=== PATIENT | female | born 1965 | race Caucasian/White ===

== ENCOUNTER → 2019-03-17 | Day surgery (SDC) | payer OTHER ==
[2019-03-14 10:07] LABS: Protime INR 0.87
[2019-03-14 10:15] LABS: Absolute Lymphocytes (CBC) 2.3 K/uL (0.7-4.9); Basophils % 0.7 % (0-1.3); Hematocrit 38.8 % (36.0-45.0); Lymphocytes % 39.2 % (15.3-44.8); MPV 8.9 fL (7.6-11.3); RBC Red Blood Cell Count 4.14 M/uL (3.86-4.86)
--- NOTE | 2019-03-14 10:52 | RAD REPORT ---
EXAM DESCRIPTION: RAD - Chest Pa And Lat (2 Views) - 03/14/2019 9:51 am CLINICAL HISTORY: Preop chest, pending cardiac catheterization COMPARISON: April 2016 TECHNIQUE: PA and lateral views of the chest were obtained. FINDINGS: The lungs are clear. Lung markings are similar to comparison. Heart size is normal and ce ntral vasculature is within normal limits. No pleural effusion or pneumothorax seen. No acute bony finding noted. No aortic abnormality. No significant interval change is noted. IMPRESSION: No acute cardiopulmonary process.
[~2019-03-17] MED LIST: ATROPINE SULF 1 MG/10 ML SYR IV ONE; FENTANYL CITR 100 MCG/2 ML ONE; HEPA 1000U/500MLS 2,000 UNIT/1,000 ML BAG IV ONE; HEPARIN 5000 UNIT/ML 1 ML VIAL ONE; LIDOCAINE 1% MPF 30 ML VIAL ONE; MIDAZOLAM HCL 2 MG/2 ML INJ ONE; NA CHLORIDE 0.9% 0 ML ONE; NA CHLORIDE 0.9% 500 ML ONE; NICARDIPINE HCL 25 MG/10 ML IV ONE; NITROGLYCERIN 100 MCG/ML SYR (for cath lab use only) IV ONE; NITROGLYCERIN/D5W 25 MG/250 ML BTL IV ONE
--- OUTSIDE RECORDS SUMMARY | 2019-03-17 07:01 | XMS REPORT | Summary of Care ---
:1965 Author Organization [facility] Address [address] [place] [address] Care Team Providers Name Role Phone Armando Kelly Primary Care Provider Reason for Referral (Routine) Status Reason Specialty Diagnoses / Referred By Contact Referred To Procedures Contact New Request Diagnoses Chest pain, unspecified type Evelin Singer MD Feaver, Brian J Procedures Discharge Follow-up: PCP ARMANDO KELLY; 3-[address] [place] [address] [address]753 [id number] [place] [address] Phone: Reason for Visit Reason Comments Chest Pain Auth/Cert Status Reason Specialty Diagnoses / Referred By Referred To Procedures Contact Contact [facility] [address] [place] [address] [place] [address] Encounter Details Date Type Department Care Team Description 03/14/2019 - Emergency [facility] Surgery Lei Whalen III, PA [address] [place] [address] [address] [place] [id number] Atypical chest pain 03/15/2019 Unit Evelin Singer MD [address] [place] [address]. [address] [place], [place] [address] [place] [address] [address] [place] [address] Allergies Active Allergy Reactions Severity Noted Date Comments Ibuprofen Other - See comments 10/10/2017 documented as of this encounter (statuses as of 03/15/2019) Medications Medication Sig Dispensed Refills Start Date End Date Status DULoxetine 30 mg 0 10/08/2017 Active capsule traZODONE 100 mg TK 1/2 TO 1 T 0 09/04/2017 Active tablet PO HS PRN butalbital-acetamin TK 1 T PO Q 6 0 10/05/2017 Active ophen 50-300 mg Tab H PRF ABAD levothyroxine 75 TK 1 T PO QD 0 10/05/2017 Active mcg tablet proMETHazine 25 mg TK 1 T PO QID 0 10/05/2017 Active tablet acetaminophen-codei Take 1 tablet 20 tablet 0 12/09/2017 Active ne (TYLENOL-CODEINE by mouth #3) 300-30 mg every 6 (six) tablet hours as needed for Pain (scale 4-6). pantoprazole 40 mg TK 1 T PO QD 30 tablet 1 03/15/2019 Active EC tabletIndications: Chest pain, unspecified type sucralfate 1 gram Take 1 tablet 120 tablet 0 03/15/2019 04/14/2019 Active tabletIndications: by mouth Chest pain, before meals unspecified type and at bedtime for 30 days. pantoprazole 40 mg TK 1 T PO QD 1 10/05/2017 03/15/2019 Discontinued EC tablet clindamycin 300 mg Take 1 28 capsule 0 12/09/2017 03/15/2019 Discontinued capsule capsule by mouth 4 (four) times daily. documented as of this encounter (statuses as of 03/15/2019) Active Problems Problem Noted Date Atypical chest pain 03/14/2019 Family history of premature CAD 03/14/2019 Cigarette nicotine dependence without complication 03/14/2019 documented as of this encounter (statuses as of 03/15/2019) Immunizations Name Administration Dates Next Due Td 12/09/2017 documented as of this encounter Social History Tobacco Use Types Packs/Day Years Used Date Current Every Day Smoker Cigarettes 1 20 Smokeless Tobacco: Never Used Tobacco Cessation: Ready to Quit: Yes Sex Assigned at Date Recorded Not on file Job Start Date Occupation Industry Not on file Not on file Not on file Travel History Travel Start Travel End No recent travel history available. documented as of this encounter Last Filed Vital Signs Vital Sign Reading Time Taken Comments Blood Pressure 103/65 03/15/2019 11:40 AM CDT Pulse 58 03/15/2019 11:40 AM CDT Temperature 36.6 C (97.9 F) 03/15/2019 11:40 AM CDT Respiratory Rate 20 03/15/2019 11:40 AM CDT Oxygen Saturation 100% 03/15/2019 11:40 AM CDT Inhaled Oxygen Concentration - - Weight 76.2 kg (168 lb) 03/14/2019 2:35 PM CDT Height 167.6 cm (5' 6") 03/14/2019 2:35 PM CDT Body Mass Index 27.12 03/14/2019 2:35 PM CDT documented in this encounter Discharge Summaries Evelin Singer MD - 03/15/2019 12:36 PM CDT Internal Medicine Discharge Summary ADMIT DATE: 03/14/2019 DISCHARGE DATE: 03/15/2019 ATTENDING MD: Evelin Singer MD PCP: Armando Kelly FINAL DIAGNOSIS: (the reason, after study, for admitting the patient to the hospital) Atypical chest pain HOSPITAL COURSE: 53 y/o female presented with atpyical chest pain, placed in observation, ruled out with negative troponins, cleared for discharge by cardiology and has cath outpatient with Dr. Alvarado coming up this Sunday in 2 days. Her pain seems more epigastric and possibly GI related. She was given maalox, carafate and ppi and seems to have improved. Will be discharged on ppi and carafate and recommended outpatient GI follow up with outpatient EGD. Also her TSH < 0.02, she has follow up with endocrinology so I recommended to f/u with them as soon as possible to discuss about decreasing her thyroid medications as its unclear to me why shes on two meds ([employer] thyroid and synthroid). Her normal SBP is in the 90s. CONSULTING SERVICES: Dr. Fountain- cardiology PROCEDURES: none SIGNIFICANT LAB/X-RAYS: LABS - reviewed pertinent labs as below: CBC BMP PT/INR WBC x10^3 (/CMM) Date Value 02/12/2006 5.3 WBC (10*3/L) Date Value 03/14/2019 6.73 NA Date Value 03/14/2019 142 mmol/L 02/12/2006 143 MMOL/L No results found for: PT RBC x10^6 (/CMM) Date Value 02/12/2006 4.43 RBC (10*6/L) Date Value 03/14/2019 4.09 K Date Value 03/14/2019 3.7 mmol/L 02/12/2006 3.6 MMOL/L INR (no units) Date Value 03/14/2019 1.0 PLT x10^3 (/CMM) Date Value 02/12/2006 267 PLT (10*3/L) Date Value 03/14/2019 219 CALCIUM Date Value 03/14/2019 9.4 mg/dL 02/12/2006 8.9 MG/DL HGB Date Value 03/14/2019 13.1 g/dL 02/12/2006 12.1 G/DL CL Date Value 03/14/2019 108 mmol/L 02/12/2006 104 MMOL/L aPTT HCT (%) Date Value 03/14/2019 37.8 02/12/2006 38.4 BUN Date Value 03/14/2019 9 mg/dL 02/12/2006 10 MG/DL APTT Patient (Seconds) Date Value 03/14/2019 26 CREATININE Date Value 03/14/2019 0.56 mg/dL 02/12/2006 0.84 MG/DL IMAGING - reviewed No results found for this visit on 03/14/19. Subjective No chest pain, sob, dizzinesss, abd pain, n/v Wants to be discharged today Physical Exam NAD Anicteric sclera, oral mucosa clear Good air entry b/l RRR, nl s1s2 Abd soft NT No significant LE, no calf tenderness AAO, no gross deficits Skin warm and dry Bilateral knees not red or swollen FUNCTIONAL STATUS: fully ambulatory DISCHARGE CONDITION: fair COGNITIVE STATUS: cognitively intact DIET: regular ACTIVITY: as tolerated DISCHARGE MEDICATIONS: Current Discharge Medication List START taking these medications Details sucralfate (CARAFATE) 1 g Take 1 g by mouth before meals and at bedtime. Qty: 120 tablet, Refills: 0 Start date: 03/15/2019, End date: 04/14/2019 Associated Diagnoses: Chest pain, unspecified type CONTINUE these medications which have CHANGED Details pantoprazole 40 mg EC tablet TK 1 T PO QD Qty: 30 tablet, Refills: 1 Start date: 03/15/2019 Associated Diagnoses: Chest pain, unspecified type CONTINUE these medications which have NOT CHANGED Details acetaminophen-codeine (TYLENOL #3) 1 tablet Take 1 tablet by mouth every 6 (six ) hours as needed forPain (scale 4-6). Qty: 20 tablet, Refills: 0 butalbital-acetaminophen 50-300 mg Tab TK 1 T PO Q 6 H PRF ABAD Refills: 0 DULoxetine 30 mg capsule levothyroxine 75 mcg tablet TK 1 T PO QD Refills: 0 proMETHazine 25 mg tablet TK 1 T PO QID Refills: 0 traZODONE 100 mg tablet TK 1/2 TO 1 T PO HS PRN Refills: 0 STOP taking these medications clindamycin (CLEOCIN HCL) 300 mg Comments: Reason for Stopping: PATIENT EDUCATION PROVIDED: medications DISCHARGE: home self care documented in this encounter Discharge Instructions InstructionsKelsi Ch RN - 03/15/2019 Patient Discharge Instructions Discharge date: 03/15/2019 Discharge Orders Discharge Follow-up: PCP ARMANDO KELLY; 3-5 Days To PCP: ARMANDO KELLY [[id number]] Patient's Preferred Location: Unknown Discharge Disposition: HOME, ([facility]) When (Patients with risk for unplanned readmission score over 16 or those noted as Hospital Dependent should follow up within 7 days with PCP or primary DX specialist): 3-5 Days Risk of Unplanned Readmission:( Score greater than 16 indicates high risk) 8 Cardiac (2 gm Sodium, Low Fat, Low Cholesterol) Diet; Texture: Regular. Texture Regular. Diabetic: No Discharge Condition - Discharge Condition: FAIR Discharge Activity Discharge Activity: As Tolerated VTE Propylaxis- Was ordered during hospitalization Discharge Instructions Order Comments: Follow up with primary care physician, endocrinology, gastroenterology and cardiology as discussed. Take Home Medications These are medications ordered for you by your healthcare provider. Do not take any other medications or supplements unless advised by your healthcare provider. Current Discharge Medication List START taking these medications Details sucralfate 1 gram tablet Take 1 tablet by mouth before meals and at bedtime for 30 days. Qty: 120 tablet, Refills: 0 Associated Diagnoses: Chest pain, unspecified type CONTINUE these medications which have CHANGED Details pantoprazole 40 mg EC tablet TK 1 T PO QD Qty: 30 tablet, Refills: 1 Associated Diagnoses: Chest pain, unspecified type CONTINUE these medications which have NOT CHANGED Details acetaminophen-codeine (TYLENOL-CODEINE #3) 300-30 mg tablet Take 1 tablet by mouth every 6 (six) hours as needed for Pain (scale 4-6). Qty: 20 tablet, Refills: 0 butalbital-acetaminophen 50-300 mg Tab TK 1 T PO Q 6 H PRF ABAD Refills: 0 DULoxetine 30 mg capsule levothyroxine 75 mcg tablet TK 1 T PO QD Refills: 0 proMETHazine 25 mg tablet TK 1 T PO QID Refills: 0 traZODONE 100 mg tablet TK / TO 1 T PO HS PRN Refills: 0 STOP taking these medications clindamycin 300 mg capsule Comments: Reason for Stopping: For questions regarding follow-up instructions call the Healthcare Hotline at or For worsening symptoms/changing condition/problems or questions: Non-emergency/urgent: Call the Healthcare Hotline at or Emergency: Go to the closest emergency room or call [phone] If you receive the patient satisfaction survey by mail please complete and return and let us know how we are doing. TOBACCO AVOIDANCE Exposure to tobacco either from smoking or from second hand (environmental) smoke or smokeless tobacco (snuff) is damaging to your health. This information is to encourage everyone to avoid tobacco exposure. It is recommended that you: ? If you smoke or use smokeless tobacco, we encourage you to quit. ? If you have already quit smoking, continue your good work! ? If you do not smoke or use smokeless tobacco, do not start. ? Avoid secondhand smoke. Additional Resources You may want to contact these organizations for further information on smoking and how to quit. [place] [employer], http://www.lungusa.org/stop-smoking/ [place] [employer], http://www.cancer.org/Healthy/StayAwayfromTobacco/index [place] [employer], http://www.heart.org/HEARTORG/GettingHealthy/ QuitSmoking/Quit-Smoking_[facility]_001085_SubHomePage.jsp AttachmentsThe following attachments cannot be sent through Care Everywhere.Chest Pain, Uncertain Cause (Togolese)Pantoprazole tablets (Togolese) Sucralfate tablets (Togolese)documented in this encounter Plan of Treatment Name Type Priority Associated Diagnoses Order Schedule EKG-12 LEAD ROUTINE HEART STATION Routine EVERY MORNING for 2 Days starting 03/15/2019 until 03/16/2019 Health Maintenance Due Date Last Done Comments PNEUMOCOCCAL 0-64 YEARS COMBINED SERIES (1 1971 of 1 - PPSV23) MAMMOGRAM 01/15/2007 01/15/2006 PAP SMEAR 01/15/2009 01/15/2006, 01/26/2005 COLONOSCOPY 2015 Zoster Recombinant Vaccine (SHINGRIX) (1 2015 of 2) DTaP,Tdap,and Td Vaccines (1 - Tdap) 12/10/2017 12/09/2017 INFLUENZA VACCINE 04/13/2019 documented as of this encounter Procedures Procedure Name Priority Date/Time Associated Diagnosis Comments POCT GLUCOSE Routine 03/15/2019 7:23 Results for this (AUTOMATED) AM CDT procedure are in the results section. LACTIC ACID WHOLE STAT 03/15/2019 5:32 Results for this BLOOD AM CDT procedure are in the results section. TROPONIN I Routine 03/15/2019 5:31 Results for this AM CDT procedure are in the results section. FREE T3 Add-on 03/14/2019 11:24 Results for this PM CDT procedure are in the results section. TROPONIN I Routine 03/14/2019 11:24 Results for this PM CDT procedure are in the results section. POCT TEST Routine 03/14/2019 5:22 Chest pain, Results for this PM CDT unspecified type procedure are in the results section. THYROID STIMULATING Add-on 03/14/2019 5:15 Results for this HORMONE PM CDT procedure are in the results section. TROPONIN I STAT 03/14/2019 5:15 Results for this PM CDT procedure are in the results section. EKG-12 LEAD STAT 03/14/2019 5:11 PM CDT URINALYSIS STAT 03/14/2019 4:51 Chest pain, Results for this PM CDT unspecified type procedure are in the results section. CBC WITH DIFFERENTIAL STAT 03/14/2019 2:53 Chest pain, Results for this PM CDT unspecified type procedure are in the results section. N-TERMINAL PRO-BNP STAT 03/14/2019 2:53 Chest pain, Results for this PM CDT unspecified type procedure are in the results section. ACTIVATED PARTIAL STAT 03/14/2019 2:53 Chest pain, Results for this THRMPLAS JOSE PM CDT unspecified type procedure are in the results section. D-DIMER STAT 03/14/2019 2:53 Chest pain, Results for this PM CDT unspecified type procedure are in the results section. PROTHROMBIN TIME / STAT 03/14/2019 2:53 Chest pain, Results for this INR PM CDT unspecified type procedure are in the results section. CBC WITH DIFF Routine 03/14/2019 2:53 Chest pain, Results for this PM CDT unspecified type procedure are in the results section. COMP. METABOLIC PANEL STAT 03/14/2019 2:53 Chest pain, Results for this (08653) PM CDT unspecified type procedure are in the results section. TROPONIN I STAT 03/14/2019 2:53 Chest pain, Results for this PM CDT unspecified type procedure are in the results section. LIPASE STAT 03/14/2019 2:53 Chest pain, Results for this PM CDT unspecified type procedure are in the results section. EKG-12 LEAD STAT 03/14/2019 2:40 PM CDT NOTICE OF PRIVACY Routine 03/14/2019 2:27 PRACTICES PM CDT documented in this encounter Results POCT GLUCOSE (AUTOMATED) (03/15/2019 7:23 AM CDT) POCT GLU 91 70 - 110 mg/dL [facility] Specimen Blood Performing Organization Address [facility] Phone Number [facility] CLIA: [id number], [address] [place] [address] Lactic Acid Whole Blood (03/15/2019 5:32 AM CDT) LACTIC ACID 1.27 0.30 - 2.60 mmol/L [facility] Specimen Blood - HAND, RIGHT Performing Organization Address [facility] Phone Number [facility] CLIA: [id number], [address] [place] [address] Troponin I (03/15/2019 5:31 AM CDT) TROPONIN I 0.004 <=0.034 ng/mL [facility] Specimen Blood - HAND, RIGHT Narrative Performed At Equal or Less than 0.034 ng/ml---Normal [facility] Note: Cardiac troponin begins to rise 3-4 hours after the onset of ischemia. Repeat in 4-6 hours if the sample was drawn within 3-4 hours of the onset of the symptom and found normal. Between 0.035 and 0.120 ng/mL--- Borderline. Questionable myocardial injury or necrosis Note: Serial measurement may be necessary to confirm or exclude the diagnosis of myocardial injury or necrosis; Clinical correlation (symptoms, EKGs, imaging studies, and others) required; Repeat in 4-6 hours if clinically indicated. Equal or Higher than 0.121 ng/mL---Abnormal. Myocardial Injury or Necrosis Likely Biotin has been reported to cause a negative bias, interpret results relative to patient's use of biotin. Performing Organization Address City/[facility] Phone Number [facility] CLIA: [id number], [address] [place] [address] FREE T3 (03/14/2019 11:24 PM CDT) FREE T3 2.94 2.77 - 5.27 pg/mL [facility] Specimen Blood - HAND, LEFT Performing Organization Address [facility] Phone Number [facility] CLIA: [id number], [address] [place] [address] Troponin I (03/14/2019 11:24 PM CDT) TROPONIN I 0.004 <=0.034 ng/mL [facility] Specimen Blood - HAND, LEFT Narrative Performed At Equal or Less than 0.034 ng/ml---Normal [facility] Note: Cardiac troponin begins to rise 3-4 hours after the onset of ischemia. Repeat in 4-6 hours if the sample was drawn within 3-4 hours of the onset of the symptom and found normal. Between 0.035 and 0.120 ng/mL--- Borderline. Questionable myocardial injury or necrosis Note: Serial measurement may be necessary to confirm or exclude the diagnosis of myocardial injury or necrosis; Clinical correlation (symptoms, EKGs, imaging studies, and others) required; Repeat in 4-6 hours if clinically indicated. Equal or Higher than 0.121 ng/mL---Abnormal. Myocardial Injury or Necrosis Likely Biotin has been reported to cause a negative bias, interpret results relative to patient's use of biotin. Performing Organization Address [facility] Phone Number [facility] CLIA: [id number], [address] [place] [address] POCT TEST (03/14/2019 5:22 PM CDT) POCT PREG Negative On board controls acceptable Yes with C Line POCT PREG LOT # [id number] POCT PREG TEST DATE 08/12/2020 Specimen Urine THYROID STIMULATING HORMONE (03/14/2019 5:15 PM CDT) Pathologist [facility] TSH <0.02 (L)Comment: 0.45 - 4.70 [facility] Biotin has been mIU/L [facility] reported to cause a negative bias, interpret results relative to patient's use of biotin. Specimen Blood - HAND, LEFT Performing Organization Address [facility] Phone Number [facility] CLIA: [id number], [address] [place] [address] TROPONIN I (03/14/2019 5:15 PM CDT) Pathologist [facility] TROPONIN I 0.003 <=0.034 ng/mL [facility] Specimen Blood - HAND, LEFT Narrative Performed At Equal or Less than 0.034 ng/ml---Normal [facility] Note: Cardiac troponin begins to rise 3-4 hours after the onset of ischemia. Repeat in 4-6 hours if the sample was drawn within 3-4 hours of the onset of the symptom and found normal. Between 0.035 and 0.120 ng/mL--- Borderline. Questionable myocardial injury or necrosis Note: Serial measurement may be necessary to confirm or exclude the diagnosis of myocardial injury or necrosis; Clinical correlation (symptoms, EKGs, imaging studies, and others) required; Repeat in 4-6 hours if clinically indicated. Equal or Higher than 0.121 ng/mL---Abnormal. Myocardial Injury or Necrosis Likely Biotin has been reported to cause a negative bias, interpret results relative to patient's use of biotin. Performing Organization Address [facility]/Zipcode Phone Number [facility] CLIA: [id number], [address] [place] [address] URINALYSIS (03/14/2019 4:51 PM CDT) APPEARANCE Clear Clear [facility] COLOR Yellow Yellow [facility] PH 7.0 4.8 - 8.0 [facility] SP GRAVITY 1.010 1.003 - 1.030 [facility] GLU U QUAL Negative Negative [facility] BLOOD Negative Negative [facility] KETONES Negative Negative [facility] PROTEIN Negative Negative [facility] UROBILIN 0.2 mg/dL 0-1.0 mg/dL [facility] BILIRUBIN Negative Negative [facility] NITRITE Negative Negative [facility] LEUK SHANIA Negative Negative [facility] RBC/HPF 4 (H) 0 - 3 HPF [facility] WBC/HPF 2 0 - 5 HPF [facility] BACTERIA Few (A) Negative [facility] SQ EPITH 5 HPF [facility] Specimen Urine - URINE, CLEAN CATCH Performing Organization Address [facility] Phone Number [facility] CLIA: [id number], [address] [place] [address] D-DIMER (03/14/2019 2:53 PM CDT) D-DIMER <0.27 <0.41 g/mL (FEU) [facility] Specimen Blood - HAND, RIGHT Narrative Performed At This test may be used in conjunction with a [facility] clinical pretest probability (PTP) assessment model to exclude pulmonary embolism (PE) and as an aid in the diagnosis of deep venous thrombosis (DVT) in outpatients suspected of PE or DVT. A D-Dimer value less than 0.50 g/ml (FEU) has a negative predicative value of 98 to 100% (95% CI) for the exclusion of pulmonary embolism (PE) and 95 to 100% (95% CI) as an aid in the diagnosis of deep vein thrombosis (DVT) when there is low or moderate pretest probability of PE or DVT. D-Dimer values are expressed in initial fibrinogen equivalent units (FEU). Performing Organization Address [facility]/State/Zipcode Phone Number [facility] CLIA: [id number], [address] [place] [address] CBC WITH DIFFERENTIAL (03/14/2019 2:53 PM CDT) WBC 6.73 4.30 - 11.10 [facility] 10*3/L [facility] RBC 4.09 3.93 - 5.25 [facility] 10*6/L [facility] HGB 13.1 11.6 - 15.0 g/dL [facility] HCT 37.8 35.7 - 45.2 % [facility] MCV 92.4 80.6 - 95.5 fL [facility] MCH 32.0 25.9 - 32.8 pg [facility] MCHC 34.7 31.6 - 35.1 g/dL [facility] RDW-SD 41.0 39.0 - 49.9 fL [facility] RDW-CV 12.1 12.0 - 15.5 % [facility] PLT 219 166 - 358 [facility] 10*3/L [facility] MPV 10.3 9.5 - 12.9 fL [facility] NRBC/100 WBC 0.0 0.0 - 10.0 /100 [facility] WBCs [facility] NRBC x10^3 <0.01 10*3/L [facility] GRAN MAT (NEUT) % 48.3 % [facility] IMM GRAN % 0.30 % [facility] LYMPH % 41.9 % [facility] MONO % 7.3 % [facility] EOS % 1.5 % [facility] BASO % 0.7 % [facility] GRAN MAT x10^3(ANC) 3.25 1.88 - 7.09 [facility] 10*3/uL [facility] IMM GRAN x10^3 <0.03 0.00 - 0.06 [facility] 10*3/uL [facility] LYMPH x10^3 2.82 1.32 - 3.29 [facility] 10*3/uL [facility] MONO x10^3 0.49 0.33 - 0.92 [facility] 10*3/uL [facility] EOS x10^3 0.10 0.03 - 0.39 [facility] 10*3/uL [facility] BASO x10^3 0.05 0.01 - 0.07 [facility] 10*3/uL [facility] Specimen Blood - HAND, RIGHT Performing Organization Address City/[facility] Phone Number [facility] CLIA: [id number], [address] [place] [address] aPTT (03/14/2019 2:53 PM CDT) Pathologist [facility] APTT Patient 26 23 - 38 Seconds [facility] Specimen Blood - HAND, RIGHT Narrative Performed At [facility] patient population mean normal value [facility] for aPTT is 30 seconds. Performing Organization Address [facility] Phone Number [facility] CLIA: [id number], [address] [place] [address] PROTHROMBIN TIME / INR (03/14/2019 2:53 PM CDT) [facility] PROTIME PATIENT 12.6 12.0 - 14.7 [facility] LABORATORY INR 1.0Comment: Normal [facility] [facility].1; Warfarin [facility] Therapeutic range LABORATORY 2.0 to 3.0 or 2.5 to 3.5, depending upon the indications. Specimen Blood - HAND, RIGHT Performing Organization Address [facility] Phone Number [facility] CLIA: [id number], [address] [place], [place] [address] [address] N-TERMINAL PRO-BNP (03/14/2019 2:53 PM CDT) [facility] NT-proBNP 125 <=125 pg/mL [facility] Specimen Blood - HAND, RIGHT Narrative Performed At Biotin has been reported to cause a negative [facility] bias, interpret results relative to patient's use of biotin. Performing Organization Address [facility] Phone Number [facility] CLIA: [id number], [address] [place], [place] [id number] [address] TROPONIN I (03/14/2019 2:53 PM CDT) [facility] TROPONIN I 0.003 <=0.034 ng/mL [facility] Specimen Blood - HAND, RIGHT Narrative Performed At Equal or Less than 0.034 ng/ml---Normal [facility] Note: Cardiac troponin begins to rise 3-4 hours after the onset of ischemia. Repeat in 4-6 hours if the sample was drawn within 3-4 hours of the onset of the symptom and found normal. Between 0.035 and 0.120 ng/mL--- Borderline. Questionable myocardial injury or necrosis Note: Serial measurement may be necessary to confirm or exclude the diagnosis of myocardial injury or necrosis; Clinical correlation (symptoms, EKGs, imaging studies, and others) required; Repeat in 4-6 hours if clinically indicated. Equal or Higher than 0.121 ng/mL---Abnormal. Myocardial Injury or Necrosis Likely Biotin has been reported to cause a negative bias, interpret results relative to patient's use of biotin. Performing Organization Address [facility] Phone Number [facility] CLIA: [id number], [address] [place] [address] LIPASE (03/14/2019 2:53 PM CDT) LIPASE 43 0 - 220 U/L [facility] Specimen Blood - HAND, RIGHT Performing Organization Address [facility] Phone Number [facility] CLIA: [id number], [address] [place] [address] COMP. METABOLIC PANEL ([id number]) (03/14/2019 2:53 PM CDT) NA 142 135 - 145 mmol/L [facility] K 3.7 3.5 - 5.0 mmol/L [facility] CL 108 98 - 108 mmol/L [facility] CO2 TOTAL 23 23 - 31 mmol/L [facility] AGAP 11 2 - 16 [facility] BUN 9 7 - 23 mg/dL [facility] GLUCOSE 101 70 - 110 mg/dL [facility] CREATININE 0.56 0.50 - 1.04 [facility] mg/dL [facility] TOTAL BILI 0.4 0.1 - 1.1 mg/dL [facility] CALCIUM 9.4 8.6 - 10.6 mg/dL [facility] T PROTEIN 7.7 6.3 - 8.2 g/dL [facility] ALBUMIN 4.5 3.5 - 5.0 g/dL [facility] ALK PHOS 92 34 - 122 U/L [facility] ALT(SGPT) 16 9 - 51 U/L [facility] AST(SGOT) 24 13 - 40 U/L [facility] eGFR Calculation 113.2 mL/min/1.73m2 [facility] (Non-) [facility] eGFR Calculation 137.2 mL/min/1.73m2 [facility] () [facility] Specimen Blood - HAND, RIGHT Narrative Performed At Association of Glomerular Filtration Rate (GFR) [facility] and Staging of Kidney Disease* + + +- + | GFR (mL/min/1.73 m2)| With Kidney Damage|Without Kidney Damage + + +- + |>90| Stage one| Normal + + +- + |60-89|S tage two| Decreased GFR + + +- + |30-59|S tage three| Stage three + + +- + |15-29|S tage four | Stage four + + +- + |<15 (or dialysis)|Stage five | Stage five + + +- + *Each stage assumes the associated GFR level has been in effect for at least three months.Stages 1 to 5, with or without kidney disease, indicate chronic kidney disease. Notes: Determination of stages one and two (with eGFR >59mL/min/1.73 m2) requires estimation of kidney damage for at least three months as defined by structural or functional abnormalities of the kidney, manifested by either: Pathological abnormalities or Markers of kidney damage (including abnormalities in the composition of the blood or urine or abnormalities in imaging tests). Performing Organization Address City/State/Zipcode Phone Number [facility] CLIA: [id number], [address] [place] [address] [facility] [address] documented in this encounter Visit Diagnoses Diagnosis Chest pain, unspecified type - Primary documented in this encounter Administered Medications Medication Order MAR Action Action Date Dose Rate Site acetaminophen (TYLENOL) tablet Given 03/15/2019 4:44 AM CDT 650 mg 650 mg 650 mg, Oral, Q6HPRN, Starting Sun03/14/19 at 1714, Until Discontinued, Routine, Pain (scale 1-3) Given 03/14/2019 5:25 PM CDT 650 mg alum-mag hydroxide-simeth (MAALOX PLUS / MAG-AL PLUS) 200-200-20 mg/5 mL suspension 30 mL 30 mL, Oral, TID, First dose on Sun03/14/19 at 2000, Until Discontinued, Routine DULoxetine (CYMBALTA) capsule 30 mg Given 03/15/2019 8:07 AM CDT 30 mg 30 mg, Oral, DAILY, First dose on Sun03/15/19 at 0900, Until Discontinued, Routine HYDROcodone-acetaminophen (NORCO 5) 5-325 Given 03/15/2019 8:06 AM CDT 1 tablet mg tablet 1 tablet 1 tablet, Oral, Q6HPRN, Starting Sun03/14/19 at 1715, Until 03/16/19 at 1714, Routine, Pain (scale 4-6) levothyroxine (SYNTHROID) tablet 50 mcg Given 03/15/2019 5:09 AM CDT 50 mcg 50 mcg, Oral, QAM-0600, First dose on Sun03/15/19 at 0600, Until Discontinued, Routine methocarbamol (ROBAXIN) tablet 750 mg Given 03/15/2019 8:06 AM CDT 750 mg 750 mg, Oral, BID, First dose on Sun03/14/19 at 2000, Until Discontinued, Routine Given 03/14/2019 9:52 PM CDT 750 mg nitroglycerin (NITROSTAT) sublingual tablet Given 03/14/2019 5:18 PM CDT 0.4 mg 0.4 mg 0.4 mg, Sublingual, Q5MIN PRN, Starting Sun03/14/19 at 1710, Until Discontinued, Routine, Chest pain Given 03/14/2019 5:11 PM CDT 0.4 mg pantoprazole (PROTONIX) 40 mg in NaCl 0.9% Given 03/15/2019 8:08 AM CDT 40 mg (NS) 100 mL MINI-BAG 40 mg, IV Piggyback, Q12H, First dose on Sun03/14/19 at 1930, Until Discontinued, 100 mL Given 03/14/2019 9:52 PM CDT 40 mg proMETHazine (PHENERGAN) tablet 25 mg Given 03/14/2019 9:52 PM CDT 25 mg 25 mg, Oral, QHS, First dose on Sun03/14/19 at 2100, Until Discontinued, Routine sucralfate (CARAFATE) 100 mg/mL suspension Given 03/15/2019 11:34 AM CDT 1, 000 mg 1,000 mg 1,000 mg (1 g), Oral, AC+HS, First dose on Sun03/14/19 at 2100, Until Discontinued, Routine Given 03/15/2019 8:07 AM CDT 1,000 mg traZODone (DESYREL) tablet 100 mg Given 03/14/2019 9:52 PM CDT 100 mg 100 mg, Oral, QHS, First dose on Sun03/14/19 at 2200, Until Discontinued, Routine Medication Order MAR Action Action Date Dose Rate Site aspirin tablet 325 mg Given 03/14/2019 4:46 PM CDT 325 mg 325 mg, Oral, ONCE, 1 dose, Sun03/14/19 at 1800, STAT xiersfpaep-[id number]-czva (ESGIC) Given 03/15/2019 10:11 AM CDT 2 tablets 50-325-40 mg tablet 2 tablet 2 tablet, Oral, ONCE, 1 dose, 03/15/19 at 1100, Routine lactated ringers IV infusion 500 New Bag 03/15/2019 12:32 AM CDT 500 mL 999 mL/hr mL at 999 mL/hr, 500 mL, Intravenous, ONCE, 1 dose, 03/15/19 at 0130, Routine maalox:diphenhydrAMINE:lidocaine2 %viscous Given 03/14/2019 3:05 PM CDT 15 mL 1:1:1: suspension (COMPOUNDED) 15 mL, Oral, ONCE, 1 dose, Sun03/14/19 at 1545, Routine morpHINE injection 4 mg Given 03/14/2019 4:46 PM CDT 4 mg 4 mg, Slow IV Push, ONCE, 1 dose, Sun03/14/19 at 1730, STAT NaCl 0.9% (NS) bolus infusion 500 New Bag 03/15/2019 5:07 AM CDT 500 mL 999 mL/hr mL at 999 mL/hr, 500 mL, IV Piggyback, ONCE, 1 dose, 03/15/19 at 0600, STAT nitroglycerin (NITROL) 2 % ointment 0.5 Given 03/14/2019 3:19 PM CDT 0.5 Inches Inch 0.5 Inch, Transdermal (Apply To Skin), ONCE, 1 dose, Sun03/14/19 at 1545, ISAMAR ondansetron (ZOFRAN (PF)) injection 4 mg Given 03/14/2019 4:46 PM CDT 4 mg 4 mg, Slow IV Push, ONCE, 1 dose, Sun03/14/19 at 1545, Routine documented in this encounter documented as of this encounter
--- OUTSIDE RECORDS SUMMARY | 2019-03-17 07:01 | XMS REPORT ---
:1965 [facility] Address [address] [place] [id number] Care Team Providers Name Role Phone Unavailable Unavailable Unavailable Problems This patient has no known problems. Allergies, Adverse Reactions, Alerts This patient has no known allergies or adverse reactions. Medications This patient has no known medications.
--- NOTE | 2019-03-17 20:10 | OP ---
Surgeon: Cristopher Alvarado MD Identification: A 53-year-old woman. Procedures: Left heart catheterization, coronary left ventricular angiography via radial approach fo r what appeared to be unstable angina. Procedure Findings: The patient has normal coronary arteries. Normal left ventricular ejection frac tion and wall motion. Normal pressures. A completely normal cardiac cath. She has a left dominant, a normal variant. Procedure In Detail: The patient was brought to the cardiac ear mold laboratory technician fasting, sedated with Versed an d fentanyl, titrated to an adequate level of sedation. She was prepared and draped in usual sterile fashion. Right radial approach was used. The tissues around the right radial artery were anesthetiz ed with 1% lidocaine. The artery was entered using a 21-gauge needle, cannulated with a 0.021 inch d iameter guidewire and then a 6-[employer] [employer] radial sheath was placed. As soon as it was in place, i t was flushed and a radial cocktail was given consisting of nicardipine, heparin, and nitroglycerin. A TIG catheter was guided into the ascending aorta using a [employer] Glidewire with a short radius J-ti p and fluoroscopy. We then used this catheter to angiogram right coronary, left coronary, left ventr icle in that order without any catheter exchanges. Adequate pictures were done. No indication for a ny intervention was present. So, a J-wire was placed into the catheter and the catheter was removed over the wire. The sheath was flushed, removed, and the arteriotomy was closed with a TR band. Complications: From the procedure, none. Estimated Blood Loss: 5 mL or less. Powerhouse Mechanic Apprentice: Dayo Pfeiffer. ELIZABETH/CRISTOFER Voice ID: [id number] Report ID: [id number]
== END ==
LOC: CCL 06:57
PROVIDERS: ATTEND Internal Medicine
DX: R07.89 Other chest pain (principal); E78.2 Mixed hyperlipidemia; K21.9 Gastro-esophageal reflux disease without esophagitis; E03.9 Hypothyroidism, unspecified; F32.9 Major depressive disorder, single episode, unspecified; F17.210 Nicotine dependence, cigarettes, uncomplicated; Z88.6 Allergy status to analgesic agent; Z82.49 Family history of ischemic heart disease and other diseases of the circulatory system
CPT/HCPCS: 85025; 80048; 36415; 85610; 85730; 71046; 93458; C1893; J1644; J2250 ×3; J3010; J0583

== ENCOUNTER 2025-04-30 07:52 | Day surgery (SDC) | payer OTHER ==
[2025-04-30] MEDS: Ringers Lactate 1,000 ML IV ONE (08:10)
[2025-04-30] MEDS ORDERED: HYDROMORPHONE HCL 1 MG/ML INJ ONE (08:32)
[2025-04-30] MEDS ORDERED: ONDANSETRON 4 MG/2 ML VIAL ONE (08:38)
[2025-04-30] MEDS ORDERED: LIDOCAINE 2% MPF 5 ML VIAL ONE (08:38)
[2025-04-30] MEDS ORDERED: FENTANYL CITR 100 MCG/2 ML ONE (08:38)
[2025-04-30] MEDS ORDERED: MIDAZOLAM HCL 2 MG/2 ML INJ ONE (08:38)
[2025-04-30] MEDS ORDERED: ROCURONIUM 50 MG/5 ML VIAL IV ONE (08:59)
[2025-04-30] MEDS: CEFAZOLIN SODIUM 1 GM/VIAL ONE (09:02)
[2025-04-30] MEDS: TRIAMCINOLONE ACETON 40 MG/ML VIAL ONE (09:08)
[2025-04-30] MEDS: LIDOCAINE HCL/EPINEPHRINE 20 ML MDV ONE (09:08)
[2025-04-30] MEDS ORDERED: Phenylephrine HCl 10 MG/ML 1 ML VIAL ONE (09:12)
[2025-04-30] MEDS: HYDROMORPHONE HCL 0.5 MG/0.5 ML INJ ONE (10:26)
[2025-04-30] MEDS ORDERED: TRIAMCINOLONE ACETON 40 MG/ML VIAL ONE (10:33)
[2025-04-30] MEDS: FAMOTIDINE 20 MG/2 ML VIAL IV ONE (10:43)
--- NOTE | 2025-04-30 11:34 | OP ---
Date of Procedure: 04/30/2025 Surgeon: Mic Hernandez MD Preoperative Diagnosis: 1. Right shoulder adhesive capsulitis. 2. Right elbow cubital tunnel syndrome. Postoperative Diagnoses: 1. Right shoulder adhesive capsulitis. 2. Right elbow cubital tunnel syndrome. Procedures Performed: 1. Right shoulder manipulation under anesthesia with corticosteroid injection. 2. Right ulnar nerve decompression without transposition. Estimated Blood Loss: 10 cc. Complications: There were no complications. Specimens: No pathology specimens sent. Indication For Operation: Ms. Weaver is a patient who has had shoulder pain and trouble including restrictions in shoulder motion for quite some time. This was complicated by numbness and tingling i n the small and ring finger. She was sent to Neurology which demonstrated slowing of conduction acro ss the elbow as well as some denervations of the hand musculature, and risks, benefits, and alternati ves of different methods of treating this was discussed with the patient. At this time, we will addr ess both the adhesive capsulitis as well as the ulnar nerve symptoms, and risks, benefits, and altern atives of each of these procedures have been discussed. She states she understands things as present ed and wishes to proceed. Description Of Procedure: The patient was taken to the operating room, placed in supine position. G eneral anesthesia was easily obtained by Anesthesia staff. Following this, paralytic was used and ra nge of motion of the shoulder demonstrates external rotation to approximately 20 degrees with near fu ll flexion and abduction, however, limitation in that range, slow external rotation and elevation and abduction does demonstrates two instances where obvious band of release of adhesions obtained. Foll owing this, passive range of motion of the shoulder was essentially full with an external rotation to 90 degrees, which will allow for access to the ulnar nerve easily. After this, an injection was allen allyson in the subacromial space and C-arm was used to ensure that there was no fracture or dislocation o f the shoulder. Attention was then turned to prepping and draping the right upper extremity in the u sual sterile fashion for cubital tunnel release. Sterile tourniquet was placed. The arm was then el evated, but not exsanguinated. Tourniquet was raised. Anatomic landmarks of the ulnar and medial ep icondyle are palpated and a planned incision line was made just distal through the groove and more pr oximally in the distal arm. Incision made carefully through skin only. Meticulous hemostasis being maintained using bipolar electrocautery. This leads down to some degree of fat which was gently divi ded and spread. Fingers were palpated and the ulnar nerve can be easily palpated deep to this and ve ry careful dissection was made until the ulnar nerve was encountered and unroofed, which allows for v isualization of its proximal and distal extents and this was then unroofed from a distal to proximal direction until we reached the intermuscular septum, which was divided. Attention was then turned fr om a distal to proximal direction and the skin incision was extended. A very careful dissection was then used to unroof the median nerve as it passes around the groove. Incision of skin extended sligh tly to allow for visualization of the ulnar nerve and division of the muscular fascia was obtained. Following this, there was found to be no obstructions throughout the ulnar nerve. The elbow was then brought through a full range of motion. There was found to be no sign of subluxation of the ulnar n erve. The wound was gently irrigated and then closed using horizontal mattress nylon. The patient w as then placed in Aquacel dressing, which was pulled taut with some soft dressing as well in case the re was more bleeding. It should be noted this was done after the tourniquet had been dropped and the re was found to be no excessive bleeding. The patient was then awakened and taken to recovery room in good condition. There were no complications. /CRISTOFER Voice ID: [id number] Report ID: [id number]
[2025-04-30 11:55] VITALS: BP 125/56; TEMP 98.3; O2SAT 98
--- NOTE | 2025-04-30 14:54 | RAD REPORT ---
EXAM: Fluoroscopy use, Fluoroscopy <1 Hour HISTORY: SHOULDER MANIPULATION COMPARISON: None FINDINGS: A total of 2 images were sent to PACS, during a fluoroscopically guided right shoulder laura pulation.. No radiologist was involved in protocoling or performance of the study, and no radiologist was present for the duration of the procedure. No interpretation of the saved images will be provided. Total fluoroscopy time: 0.1 minutes. Cumulative dose: 0.251 mGy IMPRESSION: Documentation of fluoroscopy use as above.
== END 2025-04-30 11:50 | disposition home or self-care (01) ==
LOC: OR 07:52
PROVIDERS: ATTEND Orthopaedic Surgery
PROC: 3E0U33Z Introduction of Anti-inflammatory into Joints, Percutaneous Approach (ICD-10-PCS; 2025-04-30)
PROC: 01N40ZZ Release Ulnar Nerve, Open Approach (ICD-10-PCS; principal; 2025-04-30 09:00)
PROC: 0RSJXZZ Reposition Right Shoulder Joint, External Approach (ICD-10-PCS; 2025-04-30 09:00)
DX: M75.01 Adhesive capsulitis of right shoulder (principal); G56.21 Lesion of ulnar nerve, right upper limb
CPT/HCPCS: 64718; 93005; 76000; 23700; 96372; J2704; J1100; J3301 ×2; J2371; J2003; J2250; J3010; J1171 ×2; J2405; J7120; J0690